=== PATIENT | male | born 1935 | race Caucasian/White ===

== ENCOUNTER → 2016-05-15 | Outpatient (CLI) | payer MEDICARE, OTHER | END | disposition home or self-care (01) | LOC: GMAJ 10:15 | PROVIDERS: ATTEND Family Medicine | DX: E78.00 Pure hypercholesterolemia, unspecified (principal) ==

== ENCOUNTER → 2016-08-25 | Outpatient (CLI) | payer MEDICARE, OTHER ==
--- NOTE | 2016-08-25 09:38 | RAD ---
EXAM DESCRIPTION: Shoulder,Right 2 or More Views CLINICAL HISTORY: SHOULDER PAIN COMPARISON: None Available. TECHNIQUE: 4 views of the right shoulder. FINDINGS: Moderate osteopenia and advanced degenerative changes with mild superior migration of the humeral head and narrowing of the subacromial space is present with significant AC joint arthropathy and inferior spurring. The chest wall is intact and degenerative lipping at the inferior glenoid margin is evident. No pulmonary abnormality is noted. No fracture or dislocation noted. IMPRESSION: 1. Osteopenia and degenerative changes involving the AC joint and glenohumeral articulation. Electronically signed by: Jon Oneill MD 08/25/2016 9:37 AM CDT
== END | disposition home or self-care (01) ==
LOC: RAD 07:27
PROVIDERS: ATTEND Orthopaedic Surgery
DX: M25.511 Pain in right shoulder (principal)

== ENCOUNTER → 2016-08-27 | Outpatient (CLI) | payer MEDICARE, OTHER ==
--- NOTE | 2016-08-28 08:49 | MRI ---
MRI right shoulder without contrast INDICATION: Shoulder pain rotator cuff tear rotator cuff syndrome chronic pain initial encounter no specific known injury TECHNIQUE: Noncontrast MR imaging right shoulder standard protocol FINDINGS: There is tendinopathy of the subscapularis tendon. No rupture or retraction. Mild tendinopathy of the long head bicep intracapsular portion without rupture or dislocation. Fairly severe hypertrophic AC joint osteoarthrosis. No advanced glenohumeral arthrosis. There is a full-thickness retracted tear of the supraspinatus. Maximal retraction is to the mid humeral head level. There is differential retraction with more pronounced retraction of the articular surface compared to the bursal surface. AP measurement of the supraspinatus full-thickness tear is 23 mm. There is continuity of fluid between the glenohumeral joint and bursa. There is also retraction of the articular fibers of the infraspinatus with a thin remnant bursal surface intact indicating a nearly full-thickness tear with differential retraction. There is grade 2 fatty marbling of the supraspinatus and infraspinatus muscle bellies. Grade 1 marbling otherwise. IMPRESSION: Full-thickness retracted tear supraspinatus tendon Nearly full-thickness delaminating tear with articular surface retraction infraspinatus tendon Severe hypertrophic AC joint osteoarthrosis Subacromial and subdeltoid bursitis Tendinosis and low-grade interstitial fissuring subscapularis Edema posterior lateral deltoid most likely related to recent injection Electronically signed by: Rich Zapata MD 08/28/2016 8:48 AM CDT
== END | disposition home or self-care (01) ==
LOC: MRI 09:33
PROVIDERS: ATTEND Orthopaedic Surgery
DX: M75.101 Unspecified rotator cuff tear or rupture of right shoulder, not specified as traumatic (principal)

== ENCOUNTER → 2017-01-25 | Outpatient (CLI) | payer MEDICARE, OTHER | END | disposition home or self-care (01) | LOC: GMAJ 11:29 | PROVIDERS: ATTEND Family Medicine | DX: Z12.5 Encounter for screening for malignant neoplasm of prostate (principal) ==

== ENCOUNTER → 2017-10-07 | Outpatient (CLI) | payer MEDICARE, OTHER ==
--- NOTE | 2017-10-08 08:15 | US ---
EXAM DESCRIPTION: Carotid Duplex: ULTRASOUND. CLINICAL HISTORY: STENOSIS OF UNSPECIFIED CAROTID ARTERY COMPARISON: Duplex ultrasound evaluation of the lower extremity arterial system on the same visit. TECHNIQUE: Transcutaneous scanning utilizing rain-scale and Doppler modes to evaluate the bilateral carotid systems and vertebral arteries. Percentage of diameter of stenosis or no stenosis recorded will be based upon NASCET criteria. FINDINGS: Peak systolic/end diastolic (CM-Sec) CCA Right 69/14 Left 81/17. ICA Right proximal 47/13, mid 57/14. Left proximal 63/14, Distal 78/24. Vertebral Right 35/6 Left 40/9. ECA (PS Only) Right 97 left 102. ICA/CCA peak systolic ratio: Right 0.8 Left 1.0 ICA/CCA end diastolic ratio: Right 1.0 Left 1.4 Vertebral arteries: antegrade flow. Comments Comments: Bilateral scattered foci of calcified plaque in the common carotid and internal carotid arteries. Bilateral diameter stenoses 20% or less. IMPRESSION: 1. Doppler evaluation of the bilateral carotid systems and vertebral arteries shows no hemodynamically significant stenoses. 2. No significant amount of plaque seen in the carotid arteries bilaterally. Bilateral vertebral arteries showed antegrade-cephalad flow. Electronically signed by: Ryan Ann MD 10/08/2017 8:13 AM CDT
--- NOTE | 2017-10-08 08:18 | US ---
EXAM DESCRIPTION: Extremity,Lower [place] Arteries: Ultrasound. CLINICAL HISTORY: ATHEROSCLEROSIS OR [place] ARTERIES OF EXTREMITIES COMPARISON: None. TECHNIQUE: Doppler evaluation of the bilateral lower extremity arterial flow waveforms and velocities. FINDINGS: Arterial waveforms in the right lower extremity are triphasic from the right common femoral artery through the right posterior tibial artery. Monophasic but with good velocity in the right DPA.. Arterial waveforms in the left lower extremity are triphasic from the left common femoral artery through the left posterior tibial artery. Biphasic with good velocity in the left DPA. Comments: No significant vascular narrowing or plaque. IMPRESSION: No evidence of significant atherosclerotic occlusive disease. If these findings are discordant with clinical findings, consider lower extremity CTA. Electronically signed by: Ryan Ann MD 10/08/2017 8:17 AM CDT
== END ==
LOC: US 09:30
PROVIDERS: ATTEND Family Medicine
DX: I65.23 Occlusion and stenosis of bilateral carotid arteries (principal); I70.219 Atherosclerosis of native arteries of extremities with intermittent claudication, unspecified extremity; E11.59 Type 2 diabetes mellitus with other circulatory complications

== ENCOUNTER → 2018-08-17 | Outpatient (CLI) | payer MEDICARE, OTHER ==
--- NOTE | 2018-08-17 15:10 | CT ---
EXAM DESCRIPTION: Head CLINICAL HISTORY: 82 years Male, Headache COMPARISON: CT head 07/30/2018 TECHNIQUE: Axial images are obtained from the skull base to the vertex without intravenous contrast with images viewed on bone and brain windows. Coronal and sagittal reformations were provided. This exam was performed according to our departmental dose-optimization program, which includes automated exposure control, adjustment of the mA and/or kV according to patient size and/or use of iterative reconstruction technique. FINDINGS: Brain Parenchyma, ventricles, meninges, and extra-axial spaces: Mild general cerebral volume loss. Mild white matter hypodensities in both cerebral hemispheres are nonspecific but likely relate to ischemic small vessel disease. Chronic lacunar infarction in the left frontal lobe. 3 mm hypodensity in the inferior right basal ganglia. No acute intracranial hemorrhage. No abnormal extra-axial fluid collections are present. No mass effect or herniation present. Vascular Structures: No hyperdense arteries or veins. Atherosclerosis is within the carotid siphons. Calvarium, paranasal sinuses, mastoids, and orbits: Calvarium is intact. Mild mucosal thickening in the left renal sinus. Remaining paranasal sinuses and mastoid vessels are clear. Bilateral lens placement. IMPRESSION: 1. No acute intracranial abnormality. 2. Chronic infarction in the left frontal lobe. 3. Prominent perivesical space versus chronic lacunar infarction in the inferior right basal ganglia. 4. Senescent changes. Electronically signed by: Robert Cintron MD 08/17/2018 3:08 PM CDT
== END ==
LOC: CT 13:56
PROVIDERS: ATTEND Family Medicine
DX: G44.209 Tension-type headache, unspecified, not intractable (principal); I63.50 Cerebral infarction due to unspecified occlusion or stenosis of unspecified cerebral artery; R41.81 Age-related cognitive decline

== ENCOUNTER → 2018-09-22 | Outpatient (CLI) | payer MEDICARE, OTHER ==
--- NOTE | 2018-09-22 15:09 | MRI ---
EXAM DESCRIPTION: Brain w/o Contrast: MRI. CLINICAL HISTORY: POSTCONCUSSIONAL SYNDROME COMPARISON: CT scan of the head 08/17/2018. TECHNIQUE: Multiplanar, high-field MRI unit, multiple diffusion sequences, multiple conventional sequences without contrast. FINDINGS: Bilateral multifocal hyperintense FLAIR and T2-weighted signal predominantly in the periventricular white matter with minimal confluence bilaterally in the centrum semiovale. Punctate subcortical lesion in the posterior left frontal lobe near the vertex. Also bilateral occipital lobe subcortical white matter punctate foci. No hemorrhage, no cerebral edema, no mass-effect. No diffusion restriction. Small foci of similar signal in the right insular of the basal ganglia, and posterior on the right. Minimally hyperintense FLAIR signal in the michael of the brainstem without hemorrhage, mass effect, or diffusion restriction. Possible cyst in the right cerebellar hemisphere. No hemorrhage, no parenchymal edema, no mass-effect. No diffusion restriction. Concordance of the diffusion and non-diffusion sequences with no diffusion restriction. Cortical sulci, ventricles, and other CSF spaces, and the subdural spaces are mildly prominent but interpreted to be age appropriate. No effacement or displacement. No midline shift. No extra-axial hemorrhage. Normal flow signal void in the major vessels of the [place], and the venous sinuses. IACs are symmetric bilaterally. Normal signal in the bilateral mastoid air cells. No mass effect in the bilateral cerebellopontine angles. Pituitary gland occupies most of the sella. Base of the cerebellar tonsils is at the level of the foramen magnum. No significant abnormalities in the paranasal sinuses.. The bony calvarium is intact. IMPRESSION: 1. Abnormal white matter signal in the periventricular white matter, centrum semiovale, subcortical white matter, right basal ganglia, and central michael most likely related to cerebral microvascular disease and/or aging. Cortical atrophy is most likely age-related. 2. MRI diffusion study with no evidence of acute or subacute significant ischemia or infarction. No intra-axial or extra-axial hemorrhage. Electronically signed by: Ryan Ann MD 09/22/2018 3:07 PM CDT
--- NOTE | 2018-09-22 15:57 | MRI ---
EXAM DESCRIPTION: Cervical Spine: MRI. CLINICAL HISTORY: 82 years Male CERVICAL DISC DISORDER COMPARISON: CT scan cervical spine 07/30/2018. TECHNIQUE: Multiplanar, high-field MRI, multiple sequences, non-contrast Cervical spine. FINDINGS: C3-C4: Disc desiccation with disc space maintained minimal posterior midline bulge not abutting the cord. Bilateral uncinate spurs larger on the left than the right. Hypertrophic left facet arthrosis with severe left neural foraminal narrowing. Right neuroforamen mildly narrowed along with the canal. C4-C5: Disc desiccation and disc space loss. Posterior midline disc osteophyte complex impressing the ventral cord with mild central canal stenosis. Hypertrophy of the posterior ligaments. Bilateral facet arthrosis. Mild to moderate right foraminal narrowing with mild left neural foraminal stenosis. C5-C6: Disc desiccation and minimal disc space loss. Trace retrolisthesis. Posterior broad-based disc bulge abutting the cord. Bilateral uncinate spurs. Bilateral mild facet arthrosis. Moderate left neural foraminal narrowing and mild right neural foraminal stenosis. C6-C7: Minimal disc space loss and minimal disc desiccation. Tiny posterior midline bulge. Bilateral uncinate spurs and bilateral moderate neural foraminal narrowing. Left facet arthrosis. C7-T1: Disc desiccation with normal disc space preserved. No bulging. Trace anterolisthesis. Bilateral facet arthrosis and hypertrophy. Posterior ligament thickening. Canal patent with mild bilateral neural foraminal narrowing. Normal signal in the remaining discs with no bulging. Disc spaces preserved. Canal and neural foramina are patent. Facet joints unremarkable. Hyperintense circumscribed T1 and T2 signal in the anterior T1 vertebral body most likely a hemangioma. Spinal alignment minimally kyphotic C3-C6.. No cord compression or cord edema. Atlantoaxial joint negative. Base of the cerebellar tonsils is slightly above the foramen magnum. Paravertebral soft tissues unremarkable. Vertebral bodies are not compressed at any level. Normal marrow signal in the remaining vertebral bodies and the posterior elements. IMPRESSION: 1. Multiple levels of disc desiccation, disc bulging endplate spondylosis, hypertrophic facet arthrosis. 2. Severe left neural foraminal narrowing at C3-4 with possible compromise left C4 nerve. Posterior midline disc bulge. 3. Posterior midline C4-5 disc osteophyte complex impressing on the ventral cord along with posterior elements and mild central canal stenosis. Mild left neural foraminal stenosis and possible left C5 compromise. 4. Posterior broad-based C5-C6 disc bulge. Right facet arthrosis and mild right neural foraminal stenosis. Possible right C6 compromise. Electronically signed by: Ryan Ann MD 09/22/2018 3:54 PM CDT
== END ==
LOC: MRI 09:00
PROVIDERS: ATTEND Psychiatry & Neurology Neurology
DX: F07.81 Postconcussional syndrome (principal); G93.9 Disorder of brain, unspecified; G44.219 Episodic tension-type headache, not intractable; M50.123 Cervical disc disorder at C6-C7 level with radiculopathy; M47.22 Other spondylosis with radiculopathy, cervical region; M25.78 Osteophyte, vertebrae

== ENCOUNTER 2019-11-25 21:02 | Emergency (ER) | payer MEDICARE, OTHER ==
--- NOTE | 2019-11-25 21:04 | ED.PDOC ---
History of Present Illness - General Time Seen by Provider: 11/25/19 21:03 - History of Present Illness Initial Comments: 84 yo male with a pmh of DM, HTN, DLD comes in with CP that started 9 hours ago while at a ballgame. Pain is pressure like radiates to the back and down right arm. not associated with shortness of breath, dizziness, or radiation to jaw. Does have a headache. no n/v/d/ no fever, no recent illness. no cad history. no recent travel. Patient denies any cardiac history but does follow Dr. Wheeler in [facility]. Allergies/Adverse Reactions: Allergies NO KNOWN ALLERGY Allergy (Unverified 08/12/13 08:51) Home Medications: Ambulatory Orders Aspirin [Aspirin Adult Low Dose] 81 mg PO DAILY 07/30/18 Amlodipine Besylate 5 mg PO DAILY 11/25/19 Atorvastatin Calcium 40 mg PO DAILY 11/25/19 Benazepril HCl 10 mg PO DAILY 11/25/19 Saxagliptin HCl [Onglyza] 5 mg PO DAILY 11/25/19 Venlafaxine HCl [Venlafaxine Hydrochloride] 75 mg PO DAILY 11/25/19 metFORMIN HCL [Glucophage] 1,000 mg PO BID 11/25/19 Review of Systems - Review of Systems Constitutional: Denies: chills, fever, malaise EENTM: Denies: blurred vision, double vision, throat pain Respiratory: Denies: cough, orthopnea, short of breath, wheezing Cardiology: States: chest pain. Denies: edema, palpitations, syncope Gastrointestinal/Abdominal: Denies: abdominal pain, diarrhea, nausea, vomiting Genitourinary: Denies: dysuria, frequency Musculoskeletal: Denies: joint pain, joint swelling, neck pain Skin: Denies: rash Neurological: States: headache. Denies: numbness, paresthesia, tingling, tremors, weakness Endocrine: Denies: increased hunger, increased urine, unexplained weight gain, unexplained weight loss Hematologic/Lymphatic: Denies: blood clots, easy bleeding, easy bruising Past Medical History (General) - Patient Medical History Hx Stroke: No Hx Congestive Heart Failure: No Hx Hypertension: Yes Hx Diabetes: Yes - Vaccination History Hx Tetanus, Diphtheria Vaccination: - unknown Hx Influenza Vaccination: Yes Hx Pneumococcal Vaccination: No - Social History Hx Tobacco Use: Yes Family Medical History - Family History Father Family History: Unknown Living Status: Hx Family Stroke: Yes - mother and father Hx Cardiac Disease: No Physical Exam - Physical Exam General Appearance: Alert, Comfortable, No apparent distress Eye Exam: bilateral normal Ears, Nose, Throat: hearing grossly normal, normal ENT inspection, normal pharynx Neck: non-tender, full range of motion, supple, normal inspection Respiratory: chest non-tender, lungs clear, normal breath sounds, no respiratory distress, no accessory muscle use Cardiovascular/Chest: normal peripheral pulses, regular rate, rhythm, no edema, no gallop, no JVD Peripheral Pulses: radial,right: 2+, radial,left: 2+, dorsalis pedis,right: 2+, dorsalis pedis,left: 2+ Gastrointestinal/Abdominal: normal bowel sounds, non tender, soft, no organomegaly, no pulsatile mass Rectal Exam: deferred Back Exam: normal inspection, no CVA tenderness, no vertebral tenderness Extremity: normal range of motion, non-tender, normal inspection, no pedal edema, no calf tenderness Neurologic: supervisory it specialist II-XII nml as tested, no motor/sensory deficits, alert, normal mood/affect, oriented x 3, other - no pronator drift Skin Exam: normal color, warm/dry Progress - Progress Progress: 11/25/19 21:26 EKG shows HR 81 NSR with 1st degree AV block. Otherwise interval wnl. no evidence of acute ischemia. Patient given 324 mg aspirin. CXR ordered, blood work sent. patient states chest and arm pain decreased by 90%. will hold off on repeat nitro due to systolic bp 100. cxr shows hyperexpanded lungs without evidence of acute cardiopulmonary pathology. Cardiac risk score: 5 Discuss case with hospitalist Lawson Silver, who feels it is best if patient is transferred to [place]. The data reviewed when caring for this patient included: nurse notes, prior records, etc. The history and assessments from nurses notes were reviewed and considered, and the patient's home medication list was also reviewed and considered. My assessment and the results of testing completed here in the ED were discussed with the patient/family. All questions were answered, and they express understanding of my assessment and the plan. Patient accepted by Dr. Ellis. VSS. Patient resting comfortably. Patient was transferred to [place] in stable condition. Ginny Santos DO #[id number] - Results/Orders Results/Orders: Departure - Departure Clinical Impression: Chest pain Qualifiers: Chest pain type: unspecified Qualified Code(s): R07.9 - Chest pain, unspecified Time of Disposition: 23:29 Disposition: Transfer to Hospital Referrals: Davie Gilbert MD [Primary Care Provider] - 1-2 Days Home Medications: Ambulatory Orders Aspirin [Aspirin Adult Low Dose] 81 mg PO DAILY 07/30/18 Amlodipine Besylate 5 mg PO DAILY 11/25/19 Atorvastatin Calcium 40 mg PO DAILY 11/25/19 Benazepril HCl 10 mg PO DAILY 11/25/19 Saxagliptin HCl [Onglyza] 5 mg PO DAILY 11/25/19 Venlafaxine HCl [Venlafaxine Hydrochloride] 75 mg PO DAILY 11/25/19 metFORMIN HCL [Glucophage] 1,000 mg PO BID 11/25/19 Transfer to Outside Facility - Transfer Information Decision to Transfer Date: 11/25/19 Decision to Transfer Time: 22:30 Reason for Transfer: specialized care not available Accepting Facility: [facility]
[2019-11-25] MEDS ORDERED: ASPIRIN (CHEWABLE) 81 MG TAB PO ONE (21:14)
[2019-11-25] MEDS ORDERED: NITROGLYCERIN 0.4 MG 25 EA TAB SL ONE (21:57)
--- NOTE | 2019-11-25 22:57 | RAD ---
EXAM DESCRIPTION: Chest,2 Views CLINICAL HISTORY: 84 years Male cp COMPARISON: None. FINDINGS: Pulmonary hyperinflation related to COPD. Focal area of eventration of the hemidiaphragm. No pneumothorax or pleural fluid. No acute consolidation. Heart is at the upper limits of normal. IMPRESSION: COPD without evidence of acute process Electronically signed by: Aura Barron MD 11/25/2019 10:56 PM CDT
[2019-11-26 00:10] VITALS: BP 119/66; TEMP 98.8; O2SAT 96
== END 2019-11-26 00:37 | disposition short-term general hospital (02) ==
LOC: ER 21:02
DX: R07.9 Chest pain, unspecified (principal); I44.0 Atrioventricular block, first degree; R51 Headache; I10 Essential (primary) hypertension; E11.9 Type 2 diabetes mellitus without complications; Z87.891 Personal history of nicotine dependence; Z79.82 Long term (current) use of aspirin; Z79.899 Other long term (current) drug therapy

== ENCOUNTER 2019-12-18 09:08 | Emergency (ER) | payer MEDICARE, OTHER ==
[2019-12-18 09:35] VITALS: TEMP 98.4
--- NOTE | 2019-12-18 09:38 | ED.PDOC ---
History of Present Illness - General Chief Complaint: Respiratory Problem Stated Complaint: sob and can't get deep breath Time Seen by Provider: 12/18/19 09:29 Source: patient, RN notes reviewed, Vital Signs reviewed, RN/MD, old records Exam Limitations: no limitations - History of Present Illness Comments: Patient is an 84-year-old male with past medical history of diabetes and hypertension who presents to ED with shortness of breath. States on December 08 he began feeling short of breath and was seen in the clinic and tested positive for COVID-19. He has since seen his primary care doctor and was started on a Z- Eliseo 4 days ago. Reports he developed diarrhea and fatigue 2 days ago and was told by his PCP to come to ED for evaluation today. Reports fever of 100.6 earlier today. He denies chest pain, headache or abdominal pain. Allergies/Adverse Reactions: Allergies NO KNOWN ALLERGY Allergy (Unverified 12/18/19 09:35) Home Medications: Ambulatory Orders Aspirin [Aspirin Adult Low Dose] 81 mg PO DAILY 07/30/18 Amlodipine Besylate 5 mg PO DAILY 11/25/19 Atorvastatin Calcium 40 mg PO DAILY 11/25/19 Benazepril HCl 10 mg PO DAILY 11/25/19 Saxagliptin HCl [Onglyza] 5 mg PO DAILY 11/25/19 Venlafaxine HCl [Venlafaxine Hydrochloride] 75 mg PO DAILY 11/25/19 metFORMIN HCL [Glucophage] 1,000 mg PO BID 11/25/19 Review of Systems - Review of Systems Constitutional: States: fever, malaise. Denies: chills EENTM: Denies: ear pain, nose congestion Respiratory: States: cough, short of breath Cardiology: Denies: chest pain, palpitations, syncope Gastrointestinal/Abdominal: States: diarrhea. 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 Surgical History: cholecystectomy - Vaccination History Hx Tetanus, Diphtheria Vaccination: No Hx Influenza Vaccination: Yes Hx Pneumococcal Vaccination: Yes Immunizations Up to Date: Yes - Social History Hx Tobacco Use: Yes Hx Alcohol Use: No Hx Substance Use: No Hx Substance Use Treatment: No Hx Depression: No Family Medical History - Family History Father Family History: Unknown Living Status: Hx Family Stroke: Yes - mother and father Hx Cardiac Disease: No Physical Exam - Physical Exam General Appearance: Alert, Comfortable, No apparent distress Neck: full range of motion, supple Respiratory: chest non-tender, lungs clear, normal breath sounds, no respiratory distress Cardiovascular/Chest: regular rate, rhythm, no edema Gastrointestinal/Abdominal: non tender, soft, no pulsatile mass Extremity: normal range of motion, non-tender Neurologic: no motor/sensory deficits, alert, normal mood/affect Skin Exam: normal color, warm/dry Progress - Progress Progress: 12/18/19 10:39 D/W Dr. Gilbert. Requests walking pulse ox, fibrinogen and D dimer and will evaluate patient. Pt updated. 12/18/19 10:54 Walking pulse ox 94-95%. Able to ambulate without distress or hypoxia 12/18/19 11:42 I have d/w Dr. Gilbert vitals, labs and imaging. Recommends to DC home and he will have telehealth appt with him tomorrow. Pt agrees with plan. 12/18/19 12:13 Patient was diagnosed with COVID-19 approximately 10 days ago. States he continues to feel fatigued and short of breath. In ED, his vital signs are stable. He has no hypoxia or respiratory distress. Chest x-ray shows no sign of pneumonia at this time. I have discussed with his primary care physician, Dr. Gilbert, he recommends discharging patient home and he will have a virtual visit with him tomorrow. Patient is comfortable going home. I have given him strict return precautions. - Results/Orders Results/Orders: EKG- sinus rhythm with frequent PVC i9n bigeminy patern, rate 100, nml QRS interval, nonspecific T wave abnormality CHEST XRAY EXAM DESCRIPTION: Chest,1 View CLINICAL HISTORY: 84 years Male, short of breath COMPARISON: 11/25/2019 TECHNIQUE: Single view radiograph of the chest. IMPRESSION: Enlarged cardiac silhouette. Partially calcified aorta. No lobar or masslike consolidation. No pleural effusion or pneumothorax. Thoracic spo ndylosis. 12/18/19 09:45 EKG .ONCE 12/18/19 10:37 Request for Respiratory Services Routine Laboratory Results - last 24 hr 12/18/19 12/18/19 12/18/19 09:55 09:55 09:55 WBC 5.5 RBC 4.21 L Hgb 12.5 L Hct 37.4 L MCV 88.7 MCH 29.6 MCHC 33.4 RDW 15.5 H Plt Count 113 L MPV 7.7 Absolute Neuts (auto) 4.30 Absolute Lymphs (auto) 0.70 L Absolute Monos (auto) 0.50 Absolute Eos (auto) 0.00 Absolute Basos (auto) 0.00 Neutrophils % 78.7 H Lymphocytes % 12.0 L Monocytes % 8.7 Eosinophils % 0.2 L Basophils % 0.4 Fibrinogen D-Dimer, Quantitative Sodium 135 Potassium 3.4 L Chloride 102 Carbon Dioxide 22 Anion Gap 14.4 BUN 16 Creatinine 0.72 BUN/Creatinine Ratio 22.2 H Random Glucose 198 H Serum Osmolality 276.8 Calcium 8.2 L Total Bilirubin 1.0 AST 19 ALT 14 Alkaline Phosphatase 56 Troponin I < 0.02 B-Natriuretic Peptide 145.0 H Serum Total Protein 6.3 L Albumin 3.2 Globulin 3.1 Albumin/Globulin Ratio 1.0 L 12/18/19 09:55 WBC RBC Hgb Hct MCV MCH MCHC RDW Plt Count MPV Absolute Neuts (auto) Absolute Lymphs (auto) Absolute Monos (auto) Absolute Eos (auto) Absolute Basos (auto) Neutrophils % Lymphocytes % Monocytes % Eosinophils % Basophils % Fibrinogen 456 H D-Dimer, Quantitative 1070.0 H* Sodium Potassium Chloride Carbon Dioxide Anion Gap BUN Creatinine BUN/Creatinine Ratio Random Glucose Serum Osmolality Calcium Total Bilirubin AST ALT Alkaline Phosphatase Troponin I B-Natriuretic Peptide Serum Total Protein Albumin Globulin Albumin/Globulin Ratio Departure - Departure Clinical Impression: COVID-19 Dyspnea Qualifiers: Dyspnea type: unspecified Qualified Code(s): R06.00 - Dyspnea, unspecified Time of Disposition: 11:46 Disposition: Discharge to Home or Self Care Condition: Good Departure Forms: ED Discharge - Pt. Copy, Patient Portal Self Enrollment Diet: resume usual diet Activity: increase activity as tolerated Referrals: Davie Gilbert MD [Primary Care Provider] - 1-2 Days Home Medications: Ambulatory Orders Aspirin [Aspirin Adult Low Dose] 81 mg PO DAILY 07/30/18 Amlodipine Besylate 5 mg PO DAILY 11/25/19 Atorvastatin Calcium 40 mg PO DAILY 11/25/19 Benazepril HCl 10 mg PO DAILY 11/25/19 Saxagliptin HCl [Onglyza] 5 mg PO DAILY 11/25/19 Venlafaxine HCl [Venlafaxine Hydrochloride] 75 mg PO DAILY 11/25/19 metFORMIN HCL [Glucophage] 1,000 mg PO BID 11/25/19
--- NOTE | 2019-12-18 10:13 | RAD ---
EXAM DESCRIPTION: Chest,1 View CLINICAL HISTORY: 84 years Male, short of breath COMPARISON: 11/25/2019 TECHNIQUE: Single view radiograph of the chest. IMPRESSION: Enlarged cardiac silhouette. Partially calcified aorta. No lobar or masslike consolidation. No pleural effusion or pneumothorax. Thoracic spondylosis. Electronically signed by: Robert Cintron MD 12/18/2019 10:11 AM CDT
[2019-12-18 11:59] VITALS: BP 139/74; O2SAT 97
== END 2019-12-18 11:58 | disposition home or self-care (01) ==
LOC: ER 09:08
DX: U07.1 COVID-19 (principal); I49.3 Ventricular premature depolarization; E11.9 Type 2 diabetes mellitus without complications; I10 Essential (primary) hypertension; Z87.891 Personal history of nicotine dependence; Z95.0 Presence of cardiac pacemaker; Z85.828 Personal history of other malignant neoplasm of skin; Z79.82 Long term (current) use of aspirin; Z79.899 Other long term (current) drug therapy